=== PATIENT | male | born 1995 | race Caucasian/White ===

== ENCOUNTER → 2019-11-27 | Outpatient (CLI) | payer BC, OTHER ==
[~2019-11-27] MED LIST: CEPH500 PO; HYDACE5 PO
== END | disposition home or self-care (01) ==
LOC: LAB SHORT 15:57 → LAB EV 15:57
DX: B34.9 Viral infection, unspecified (principal); Z20.828 Contact with and (suspected) exposure to other viral communicable diseases
CPT/HCPCS: 87081; U0003

== ENCOUNTER → 2020-02-05 | Outpatient (CLI) | payer BC ==
[2020-02-08 05:09] LABS: CHLAMYDIA TRACHOMATIS, NAA Positive (Negative)
== END | disposition home or self-care (01) ==
LOC: LAB EV 16:15 → LAB SHORT 16:15
PROVIDERS: Physician Assistant
DX: R30.9 Painful micturition, unspecified (principal); L72.3 Sebaceous cyst
CPT/HCPCS: 87070; 87147; 87205; 87491; 87591